=== PATIENT | male | born 1975 | race Caucasian/White ===

== ENCOUNTER 2020-02-22 22:21 | Emergency (ER) | payer OTHER ==
[2020-02-22] MEDS ORDERED: LORazepam TAB(*) 1 MG PO ONE (22:32)
--- NOTE | 2020-02-22 22:32 | ED ---
Substance Abuse/Use - HPI Summary HPI Summary: This pt is a 44 Y/O M presenting to [facility] after eating a candy that he states was filled with marijuana. He states that he got the candy at a [employer] and reports eating it at 1999. He states that he currently feels like he is coming down off of a panic attack. He states that he has never used marijuana before. He is currently experiencing tingling and lightheadedness. He states that he was unable to keep water down and vomited [employer]. 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 He states that he also is having dry mouth. He denies any fevers, chills, SOB, CP, rash, and sore throat. He states that he has no history of drug use or tobacco ingestion. He states no aggravating or alleviating factors. 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 Alleviating Factor(s): Nothing Associated Signs And Symptoms: Negative - fevers, chills, SOB, CP, rash, and sore throat, Tremulous, Vomiting, Other: - states unintentional ingestion, lightheadedness - Allergies/Home Medications Allergies/Adverse Reactions: Allergies Allergy/AdvReac Type Severity Reaction Status Date / Time sertraline Allergy Intermediate Fatigue Verified 02/22/20 22:42 Home Medications: Home Medications [place]-3 Fatty Acids/Fish Oil [[place] 3] 1 cap PO DAILY 01/01/20 [History Confirmed 01/01/20] Acetaminophen TAB* [Tylenol TAB*] 975 mg PO Q6H PRN 01/10/20 [History Confirmed 01/10/20] Aspirin 325 MG TAB* 325 mg PO SEE INSTRUCTIONS PRN 01/10/20 [History Confirmed 01/10/20] Ibuprofen TAB* [Advil TAB*] 200 mg PO Q6H PRN 01/10/20 [History Confirmed ] Mv-Mn/C/Glutamin/Lysin/Uuta896 [Airborne Gummies] 1 each PO DAILY 01/10/20 [ History Confirmed 01/10/20] Nettle [place] 480 mg PO DAILY 01/10/20 [History Confirmed 01/10/20] Niacin ER CAP* [Niaspan ER CAP*] 1,000 mg PO DAILY 01/10/20 [History Confirmed 01/10/20] PMH/Surg Hx/FS Hx/Imm Hx Previously Healthy: Yes Endocrine/Hematology History: Denies: Hx Diabetes Respiratory History: Denies: Hx Asthma GI History: Reports: Other GI Disorders - poor stomach lining - Cancer History Hx Chemotherapy: No Hx Radiation Therapy: No - Surgical History Surgical History: Yes Surgery Procedure, Year, and Place: polyps removed from colon - Immunization History Immunizations Up to Date: Yes Infectious Disease History: No - Family History Known Family History: Positive: Hypertension - Social History Occupation: Unemployed Lives: Alone Alcohol Use: Rare Hx Substance Use: No Substance Use Type: Reports: None Hx Tobacco Use: No Smoking Status (MU): Never Smoked Tobacco Review of Systems Negative: Fever, Chills Negative: Sore Throat Negative: Chest Pain Negative: Shortness Of Breath Negative: Rash Neurological/Mental Status: Other - POSITIVE: lightheadedness, tingling All Other Systems Reviewed And Are Negative: Yes Physical Exam - Summary Physical Exam Summary: Constitutional: Well-developed, Well-nourished, Alert. (-) Distressed Skin: Warm, Dry HENT: Normocephalic; Atraumatic Eyes: Conjunctiva normal, pupils 6 mm and reactive. Neck: Musculoskeletal ROM normal neck. (-) JVD, (-) Stridor, (-) Tracheal deviation Cardio: Rhythm regular, rate tachycardic in the 110s, Heart sounds normal; Intact distal pulses; Radial pulses are 2+ and symmetric. (-) Murmur Pulmonary/Chest wall: Effort normal. (-) Respiratory distress, (-) Wheezes, (-) Rales Abd: Soft, (-) tenderness, (-) Distension, (-) Guarding, (-) Rebound Musculoskeletal: (-) Edema Lymph: (-) Cervical adenopathy Neuro: Alert, Oriented x3 Psych: Anxious appearing, affect normal. Triage Information Reviewed: Yes Vital Signs On Initial Exam: Temp Pulse Resp BP SpO2 FiO2 97.5 F 113 18 135/81 98 02/22/20 22:25 02/22/20 22:25 02/22/20 22:25 02/22/20 22:25 02/22/20 22:25 Vital Signs Reviewed: Yes Procedures - Sedation Patient Received Moderate/Deep Sedation with Procedure: No Re-Evaluation - Re-Evaluation First Eval Re-Evaluation Time: 23:55 Change: Improved Comment: Pt's heart rate is decreasing and he states that his SOB is resolving. Currently he states that he is still anxious. He reports that his feet are heavy. Second Eval Re-Evaluation Time: 00:46 Change: Improved Comment: Pt was informed that his father called and was stating that he could drive home. The pt became more anxious and stated that "my family doesn't know I did this tonight." Course/Dx - Course Course Of Treatment: Patient is here after accidentally overdosing on marijuana. Patient was initially tachycardic but was very anxious. Patient was given Ativan and by mouth fluids with improvement in his symptoms. Patient was monitored until he got a safe ride home by his mother. - Diagnoses Provider Diagnoses: Accidental marijuana overdose Discharge ED - Sign-Out/Discharge Documenting (check all that apply): Patient Departure - discharge - Discharge Plan Condition: Good Disposition: HOME Patient Education Materials: Cannabis Abuse (ED) Referrals: Fabián Goldman MD [Primary Care Provider] - 2 Days Additional Instructions: PLEASE FOLLOW UP WITH YOUR PRIMARY CARE PROVIDER IN 1-3 DAYS AND RETURN TO THE EMERGENCY DEPARTMENT FOR ANY NEW OR WORSENING SYMPTOMS. - Billing Disposition and Condition Condition: GOOD Disposition: Home - Attestation Statements Document Initiated by Salma: Yes Documenting Scribe: Freddy Keller Provider For Whom Salma is Documenting (Include Credential): Rosalio Mcgarry MD Scribe Attestation: Freddy Rivera, scribed for Rosalio Mcgarry MD on 02/23/20 at 0232. Scribe Documentation Reviewed: Yes Provider Attestation: The documentation as recorded by the Freddy salazar accurately reflects the service I personally performed and the decisions made by me, Rosalio Mcgarry MD Status of Scribe Document: Viewed
[2020-02-23 01:30] VITALS: BP 109/71
--- OUTSIDE RECORDS SUMMARY | 2020-02-23 01:31 | XMS REPORT | Continuity of Care Document ---
:1975 External Reference #:[id number] Author Name Fabián Goldman MD Address [address] [place] [address] Problems Description No Information Available Social History Type Date Description Comments Sex Unknown Tobacco Use Start: Unknown Never Smoked Cigarettes ETOH Use Rare Use Of Alcohol Recreational Drug Use Denies Drug Use Exercise Type/Frequency Negative For Exercises Regular stretching regularly exercises Exercise Type/Frequency Exercises rarely Allergies, Adverse Reactions, Alerts Description No Known Drug Allergies Medications Active Medications SIG Qnty Indications Ordering Provider Date Sertraline HCL 1 by mouth every 30tabs F41.9 Fabián Goldman, 01/16/2020 50mg day MD Tablets Niacin Unknown Tablets Airborne Unknown Che[place]abs Hep Oil Unknown Stinging Nettle [place] Unknown Omeprazole Take One Capsule Unknown 20mg By Mouth Twice A Capsules DR Day 30 To 60 Minutes Before A Meal Immunizations CPT Code Status Date Vaccine Lot # [id number] Given 11/24/2019 Influenza Virus Vaccine, Quadrivalent, 3 Yr > [id number] Quad, Preserv Free 01214 Given 09/21/2018 Influenza Virus Vaccine, Quadrivalent, 3 Yr > [id number] Quad, Preserv Free 02576 Given 12/09/2017 Influenza Virus Vaccine, Quadrivalent, 3 Yr > [id number] Quad, Preserv Free 97775 Given 02/10/2016 Tdap (Adacel) [id number] Vital Signs Date Vital Result Comment 01/16/2020 11:02am Weight 151.00 lb Weight 68.494 kg BP Systolic 112 mmHg BP Diastolic 72 mmHg Heart Rate 72 /min Body Temperature 97.8 F Respiratory Rate 16 /min O2 % BldC Oximetry 97 % 11/24/2019 9:24am Weight 162.00 lb Weight 73.483 kg BP Systolic 102 mmHg BP Diastolic 68 mmHg Heart Rate 76 /min Body Temperature 96.1 F Respiratory Rate 16 /min Results Test Acquired Date Facility Test Result H/L Range Note Laboratory test 01/10/2020 [facility] Surgical SEE RESULT 1 finding [phone] Pathology BELOW Order Laboratory test 01/10/2020 [facility] Clotest SEE RESULT 2 finding [phone] BELOW Disaccharidase 01/10/2020 [facility] Lactase 4.2 3 Analysis [phone] Sucrase 25.3 4 Maltase 90.8 5 Palatinase 6.3 6 Interpretation See Comment 7 CBC Auto 11/24/2019 [facility] White Blood 6.3 10^3/ uL Normal 3.5-10.8 Diff [phone] Count Red Blood Count 5.56 10^6/uL High 4.18-5.48 Hemoglobin 16.5 g/dL Normal 14.0-18.0 Hematocrit 48 % Normal 42-52 Mean Corpuscular Volume 86 fL Normal 80-94 Mean Corpuscular Hemoglobin 30 pg Normal 27-31 Mean Corpuscular HGB Conc 35 g/dL Normal 31-36 Red Cell Distribution Width 13 % Normal 10-15 Platelet Count 273 10^3/uL Normal 150-450 Mean Platelet Volume 8.2 fL Normal 7.4-10.4 Abs Neutrophils 3.8 10^3/uL Normal 1.5-7.7 Abs Lymphocytes 1.8 10^3/uL Normal 1.0-4.8 Abs Monocytes 0.6 10^3/uL Normal 0-0.8 Abs Eosinophils 0.1 10^3/uL Normal 0-0.6 Abs Basophils 0.0 10^3/uL Normal 0-0.2 Abs Nucleated RBC 0.0 10^3/uL Granulocyte % 59.6 % Lymphocyte % 28.6 % Monocyte % 9.5 % Eosinophil % 1.8 % Basophil % 0.5 % Nucleated Red Blood Cells % 0.1 Comp Metabolic 11/24/2019 [facility] Sodium 140 mmol/ L Normal 135-145 Panel [phone] Potassium 4.2 mmol/L Normal 3.5-5.0 Chloride 103 mmol/L Normal 101-111 Co2 Carbon Dioxide 29 mmol/L Normal 22-32 Anion Gap 8 mmol/L Normal 2-11 Glucose 90 mg/dL Normal 70-100 Blood Urea Nitrogen 16 mg/dL Normal 6-24 Creatinine 0.96 mg/dL Normal 0.67-1.17 BUN/Creatinine Ratio 16.7 Normal 8-20 Calcium 9.9 mg/dL Normal 8.6-10.3 Total Protein 7.2 g/dL Normal 6.4-8.9 Albumin 4.9 g/dL Normal 3.2-5.2 Globulin 2.3 g/dL Normal 2-4 Albumin/Globulin Ratio 2.1 Normal 1-3 Total Bilirubin 0.60 mg/dL Normal 0.2-1.0 Alkaline Phosphatase 67 U/L Normal 34-104 Alt 30 U/L Normal 7-52 Ast 20 U/L Normal 13-39 Egfr Non- 84.3 >60 Egfr 102.0 >60 8 Laboratory 11/24/2019 [facility] Lyme Screen W/ Negative Negative 9 test finding [phone] Reflex To WB Celiac Panel 11/24/2019 [facility] Tissue <1.2 U/mL 10 [phone] Transglutaminase IgA Ab Immunoglobulin A 175 mg/dL 61 - 356 Celiac Interpretation See Comment 11 1 SEE RESULT BELOW Name: EDENJEAN G : [address]: Lilian Harrington MD Acct: [id number] Unit: [id number] AGE: 44 Location: ENDO Re01/10/20 SEX: M Status: DEP REF SPEC: [id number] TANIYA: 01/10/20- SUBM DR: Lilian Zapata MD REQ: [id number] RECD: 01/10/20-1340 STATUS: [facility] DR: Fabián Goldman MD _ ORDERED: LEVEL 4/10, IMMUNO-FIRST ADDENDUM An H. pylori immunohistochemical stain, with appropriately reacting controls , was performed on sections cut from specimen 3 and is negative for Helicobacter organisms. Addendum Signed (signature on file) Angie Miranda MD 1647 FINAL DIAGNOSIS 1. Small bowel, duodenum, biopsy: -- Small bowel mucosa with normal villous architecture and mild superficial hyperemia. -- No increased lamina propria lymphoplasmacytic infiltrate or villous blunting identified. 2. Small bowel, duodenal bulb, biopsy: -- Small bowel mucosa with normal villous architecture and mild superficial hyperemia. -- No increased lamina propria lymphoplasmacytic infiltrate or villous blunting identified. 3. Stomach, antrum, biopsy: -- Gastric antral mucosa with mild hyperemia. -- No active gastritis nor Helicobacter pylori-like organisms identified. See comment. 4. Colon, ascending, biopsy: -- Tubular adenoma. -- No high grade dysplasia or malignancy. 5. Colon, random biopsies: -- Large intestinal mucosa with no significant pathologic abnormality. -- No evidence of microscopic/lymphocytic colitis, collagenous colitis or other acute or chronic inflammatory bowel process identified. CONTINUED ON NEXT PAGE DEPARTMENT OF PATHOLOGY, [address] [place] [address] Jeremie Malone M.D. Director [facility] # [id number] 6. Colon, hepatic flexure, biopsy: -- Villoglandular adenoma. -- No high grade dysplasia or malignancy identified. 7. Colon, descending, biopsy: -- Tubular adenoma. -- No high grade dysplasia or malignancy. 8. Colon, 20 cm, biopsy: -- Tubulovillous adenoma. -- No high grade dysplasia or malignancy identified. 9. Colon, rectum, biopsy: -- Hyperplastic polyps (2 fragments). 10. Colon, 10 cm, biopsy: -- Hyperplastic polyp. CLINICAL HISTORY Change in bowel movements; nausea POST-OPERATIVE DIAGNOSIS EGD: esophagus-OK, gastroesophageal junction at 40cm; gastric-prepyloric antrum erosions, CLOtest, biopsy; duodenum-normal, erythematous bulb-biopsy; colonoscopy to terminal ileum; ascending 2 mm jumbo; hepatic flexure 1.2 cm, cold snare and jumbo biopsy; descending 4 mm cold snare; 20cm 1.5-2cm hot snare, clip; 10cm 8-10mm, hot snare, clip; rectal 3mm x2, jumbo; hemorrhoids GROSS DESCRIPTION 1. The specimen is received in formalin labeled, Duodenum Biopsies, and consists of a 0.6 x 0.4 x 0.2 cm aggregate of banks-red irregular soft tissue fragments which is submitted entirely in one cassette. 2. The specimen is received in formalin labeled, Duodenal Bulb Biopsies, and consists of a 0.5 x 0.4 x 0.2 cm aggregate of banks-red irregular soft tissue fragments which is submitted entirely in one cassette. CONTINUED ON NEXT PAGE DEPARTMENT OF PATHOLOGY, [address] [place] [address] Jeremie Malone M.D. Director [facility] # [id number] 3. The specimen is received in formalin labeled, Biopsy Gastric Antrum, and consists of a 0.6 x 0.5 x 0.2 cm aggregate of banks-red irregular soft tissue fragments which is submitted entirely in one cassette. 4. The specimen is received in formalin labeled, Biopsy Ascending Colon Polyp, and consists of two banks irregular to polypoid soft tissue fragments measuring 0.3 x 0.2 x 0.1 cm and 0.4 by up to 0.2 x 0.1 cm which are submitted entirely in one cassette. 5. The specimen is received in formalin labeled, Random Colon Biopsies, and consists of a 1.0 x 0.6 x 0.1 cm aggregate of banks-pink irregular soft tissue fragments which is submitted entirely in one cassette. 6. The specimen is received in formalin labeled, Hepatic Flexure Colon Polyp, and consists of a 1.1 x 0.9 x 0.4 cm aggregate of banks-pink irregular to polypoid soft tissue fragments which is submitted entirely in one cassette. 7. The specimen is received in formalin labeled, Descending Colon Polyp, and consists of a 0.4 x 0.3 x 0.2 cm banks-pink polypoid soft tissue fragment which is submitted entirely in one cassette. 8. The specimen is received in formalin labeled, Colon Polyp at 20 cm, and consists of a 1.0 x 1.0 x 0.5 cm banks-red lobulated pedunculated polypoid soft tissue fragment with a 0.5 x 0.4 cm stalk. The specimen is inked, trisected and submitted entirely in one cassette. 9. The specimen is received in formalin labeled, Biopsy Rectal Polyps, and consists of a 0.6 x 0.5 x 0.1 cm aggregate of banks-red irregular to polypoid soft tissue fragments which is submitted entirely in one cassette. 10. The specimen is received in formalin labeled, Colon Polyp at 10 cm, and consists of a 0.5 x 0.4 x 0.4 cm banks-red polypoid soft tissue fragment which is inked, bisected and submitted entirely in one cassette. Signed by and Reported on: Jeremie Malone MD 1224 END OF REPORT DEPARTMENT OF PATHOLOGY, [address] [place] [address] Jeremie Malone M.D. Director [facility] # [id number] 2 SEE RESULT BELOW Name: JEAN HARMON : [address]: Lilian Harrington MD Acct: [id number] Unit: [id number] AGE: 44 Location: ENDO Re01/10/20 SEX: M Status: REG REF SPEC: [id number] TANIYA: 01/10/20-[address]: Lilian Harrington MD REQ: [id number] RECD: 01/10/20 STATUS: [facility] DR: Fabián Goldman MD _ SOURCE: GAS ANTRUM SPDESC: ORDERED: Clotest Procedure Result Reported Site Clotest Final 01/11/20811 ML Clotest Negative * - [facility] . END OF REPORT DEPARTMENT OF PATHOLOGY, [address] [place] [address] Jeremie Malone M.D. 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 Test Performed by: [facility] [employer] [address] [place] [address] 8 Because ethnic data is not always readily available, this report includes an eGFR for both -Americans and non- Americans. The National Kidney Disease Education Program (NKDEP) does not endorse the use of the MDRD equation for patients that are not between the ages of 18 and 70, are , have extremes of body size, muscle mass, or nutritional status, or are non- or non-. According to the National Kidney Foundation, irrespective of diagnosis, the stage of the disease is based on the level of kidney function: Stage Description GFR(mL/min/1.73 m(2)) 1 Kidney damage with normal or decreased GFR 90 2 Kidney damage with mild decrease in GFR 60-89 3 Moderate decrease in GFR 30-59 4 Severe decrease in GFR 15-29 5 Kidney failure <15 (or dialysis) 9 [id number] 10 REFERENCE VALUE <4.0 (Negative) Test Performed by: [place] [address] Cardiology Manager: Vicente Virk M.D. Ph.D.; CLIA# [id number] 11 Negative serology. Celiac disease unlikely. However, approximately 10% of patients with celiac disease are seronegative. Also, patients who are already adhering to a gluten-free diet may be seronegative. If celiac disease is highly clinically suspected, consider HLA-DQ typing. Test Performed by: [place] [address] Cardiology Manager: Vicente Virk M.D. Ph.D.; CLIA# [id number] Procedures Description No Information Available Medical Devices Description No Information Available Encounters Type Date Location Provider Dx Diagnosis Office Visit 11/24/2019 Main Office Fabián Goldman K58.2 Mixed irritable 9:15a MD bowel syndrome K40.90 Unil inguinal hernia, w/o obst or gangr, not spcf as recur Z23 Encounter for immunization Assessments Date Code Description Provider 01/16/2020 K58.2 Mixed irritable bowel syndrome Fabián Goldman MD 01/16/2020 F41.9 Anxiety disorder, unspecified Fabián Goldman MD 11/24/2019 K58.2 Mixed irritable bowel syndrome Fabián Goldman MD 11/24/2019 K40.90 Unilateral inguinal hernia, without Fabián Goldman MD obstruction or gangrene, not specified as recurrent 11/24/2019 Z23 Encounter for immunization Fabiná Goldman MD Plan of Treatment 01/16/2020 - Fabián Goldman MDK58.2 Mixed irritable bowel syndromeComments: Has had an adequate rule out for serious GI issues per GI. Will focus on control of symptoms and treat for anxiety, work on diet and use symptomatic treatment such as acupuncture.Recommendations:low FODMAP diet.F41.9 Anxiety disorder, unspecifiedNew Medication:Sertraline HCL 50 mg - 1 by mouth every dayComments:He would really like to try a medication. His mom has been doing well on zoloft. Functional Status Description No Information Available Mental Status Description No Information Available Referrals Refer to Dr Reason for Referral Status Appt Date Thanh Preciado [facility] - Chronic GI issues for Closed decades. Has not seen GI or had c-scope. - - Please contact Pt to schedule appt. - - Please fax appointment date[facility] to [facility], . [facility] [address] [address] [phone]
--- OUTSIDE RECORDS SUMMARY | 2020-02-23 01:31 | XMS REPORT | Continuity of Care Document ---
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 Gastroduodenitis Angelique Haas PA-C Onset: 01/29/2020 Disorder of digestive system Angelique Haas PA-C Onset: 12/12/2019 Constipation Angelique Haas PA-C Onset: 12/12/2019 Diarrhea Angelique Haas PA-C Onset: 12/12/2019 Generalized abdominal pain Angelique Haas PA-C Onset: 12/12/2019 Nausea ZENON Chakraborty-Jose Onset: 12/12/2019 Social History Type Date Description Comments Sex Unknown ETOH Use Rarely consumes alcohol Recreational Drug Use Never Used Drugs Tobacco Use Start: Unknown Patient has never smoked Smoking Status Reviewed: 01/29/20 Patient has never smoked Allergies, Adverse Reactions, Alerts Description No Known Drug Allergies Medications Active Medications SIG Qnty Indications Ordering Provider Date Omeprazole take 1 capsule by 60caps Lilian 01/11/2020 20mg mouth twice MD Juany Capsules DR daily. take 30-60 minutes before a meal. [place]-3 Unknown 1000mg Capsules Sertraline HCL Daily Unknown 50mg Tablets History Medications Peg-3350/Electrolytes by mouth as 4000ml K59.00 Lilian 12/12/2019 - 236gm directed MD Juany 01/12/2020 Solution Rec Immunizations CPT Code Status Date Vaccine Lot # 36077 Given 11/24/2019 Influenza Virus Vaccine, Quadrivalent, Split, Preservative Free 68352 Given 09/21/2018 Influenza Virus Vaccine, Quadrivalent, Split, Preservative Free 42035 Given 12/09/2017 Influenza Virus Vaccine, Quadrivalent, Split, Preservative Free 95546 Given 02/10/2016 Tetanus, Diphtheria Toxoids/Acellular Pertussis Vaccine 7 Or > Vital Signs Date Vital Result Comment 01/29/2020 10:21am Height 67 inches 5'7" Weight 152.00 lb BMI (Body Mass Index) 23.8 kg/m2 12/12/2019 9:32am Height 67 inches 5'7" Weight 158.00 lb BP Systolic 118 mmHg BP Diastolic 82 mmHg Heart Rate 82 /min BMI (Body Mass Index) 24.7 kg/m2 Results Test Acquired Date Facility Test Result H/L Range Note Laboratory test 01/10/2020 [facility] [place] Surgical SEE RESULT 1 finding Pathology Order BELOW Laboratory test 01/10/2020 [facility] [place] Clotest SEE RESULT 2 finding BELOW Disaccharidase 01/10/2020 [facility] [place] Lactase 4.2 3 Analysis Sucrase 25.3 4 Maltase 90.8 5 Palatinase 6.3 6 Interpretation See Comment 7 Celiac Panel! 11/24/2019 [facility] Endomysial AB QN <pending> Serum Transglutaminase 11/24/2019 [facility] Transglutaminase AB <pending> Iga/Igg Iga Transglutaminase AB Igg <pending> Gliadin Igg/Iga AB 11/24/2019 [facility] Gliadin Iga <pending> Gliadin Igg <pending> CBC Auto Diff 11/24/2019 N2N/CCD Import White Blood Count 6.3 10^3/uL 3.5-10.8 Red Blood Count 5.56 10^6/uL High 4.18-5.48 Hemoglobin 16.5 g/dL 14.0-18.0 Hematocrit 48 % 42-52 Mean Corpuscular Volume 86 fL 80-94 Mean Corpuscular Hemoglobin 30 pg 27-31 Mean Corpuscular HGB Conc 35 g/dL 31-36 Red Cell Distribution Width 13 % 10-15 Platelet Count 273 10^3/uL 150-450 Mean Platelet Volume 8.2 fL 7.4-10.4 Abs Neutrophils 3.8 10^3/uL 1.5-7.7 Abs Lymphocytes 1.8 10^3/uL 1.0-4.8 Abs Monocytes 0.6 10^3/uL 0-0.8 Abs Eosinophils 0.1 10^3/uL 0-0.6 Abs Basophils 0.0 10^3/uL 0-0.2 Abs Nucleated RBC 0.0 10^3/uL Granulocyte % 59.6 % Lymphocyte % 28.6 % Monocyte % 9.5 % Eosinophil % 1.8 % Basophil % 0.5 % Nucleated Red Blood Cells % 0.1 1 Lab Results 11/24/2019 N2N/CCD Import Sodium 140 mmol/L 135-145 Potassium 4.2 mmol/L 3.5-5.0 Chloride 103 mmol/L 101-111 Co2 Carbon Dioxide 29 mmol/L 22-32 Anion Gap 8 mmol/L 2-11 Glucose 90 mg/dL 70-100 Blood Urea Nitrogen 16 mg/dL 6-24 Creatinine 0.96 mg/dL 0.67-1.17 BUN/Creatinine Ratio 16.7 1 8-20 Calcium 9.9 mg/dL 8.6-10.3 Total Protein 7.2 g/dL 6.4-8.9 Albumin 4.9 g/dL 3.2-5.2 Globulin 2.3 g/dL 2-4 Albumin/Globulin Ratio 2.1 1 1-3 Total Bilirubin 0.60 mg/dL 0.2-1.0 Alkaline Phosphatase 67 U/L 34-104 Alt 30 U/L 7-52 Ast 20 U/L 13-39 Egfr Non- 84.3 1 Egfr 102.0 1 8 Lyme Screen W/ Reflex To WB <pending> Lab Results 11/24/2019 N2N/CCD Import Lyme Screen W/ Reflex To WB <pending > 1 SEE RESULT BELOW Name: EDENJEAN G : [address]: Lilian Harrington MD Acct: [id number] Unit: [id number] AGE: 44 Location: ENDO Re01/10/20 SEX: M Status: REG REF SPEC: [id number] TANIYA: 01/10/20- SUBM DR: Lilian Zapata MD REQ: [id number] RECD: 01/10/20 STATUS: ANITA HOUSE DR: Fabián Goldman MD _ ORDERED: LEVEL 4/10 FINAL DIAGNOSIS 1. Small bowel, duodenum, biopsy: [...] acute or chronic inflammatory bowel process identified. 6. Colon, hepatic flexure, biopsy: -- Villoglandular adenoma. -- No high grade dysplasia or malignancy identified. 7. Colon, descending, biopsy: -- Tubular adenoma. -- No high grade dysplasia or malignancy. 8. Colon, 20 cm, biopsy: -- Tubulovillous adenoma. CONTINUED ON NEXT PAGE DEPARTMENT OF PATHOLOGY, [address] [place] [address] Jeremie Malone M.D. Director [facility] # [id number] -- No high grade dysplasia or malignancy [...] which is submitted entirely in one cassette. 3. The specimen is received in formalin [...] Random Colon Biopsies, and consists of a CONTINUED ON NEXT PAGE DEPARTMENT OF PATHOLOGY, [address] [place] [address] Jeremie Malone M.D. Director [facility] # [id number] 1.0 x 0.6 x 0.1 cm aggregate [...] 1224 END OF REPORT DEPARTMENT OF PATHOLOGY, [address] [place] [address] Jeremie Malone M.D. Director [facility] # [id number] SEE RESULT BELOW Name: JEAN HARMON : [address]: Lilian Harrington MD Acct: [id number] Unit: [id number] AGE: 44 Location: ENDO Re01/10/20 SEX: M Status: REG REF SPEC: [id number] TANIYA: 01/10/20- SUBM DR: Lilian Zapata MD REQ: [id number] RECD: 01/10/20-1340 STATUS: ANITA HOUSE DR: Fabián Goldman MD _ ORDERED: LEVEL 4/10 FINAL DIAGNOSIS 1. Small bowel, duodenum, biopsy: [...] acute or chronic inflammatory bowel process identified. 6. Colon, hepatic flexure, biopsy: -- Villoglandular adenoma. -- No high grade dysplasia or malignancy identified. 7. Colon, descending, biopsy: -- Tubular adenoma. -- No high grade dysplasia or malignancy. 8. Colon, 20 cm, biopsy: -- Tubulovillous adenoma. CONTINUED ON NEXT PAGE DEPARTMENT OF PATHOLOGY, [address] [place] [address] Jeremie Malone M.D. Director [facility] # [id number] -- No high grade dysplasia or malignancy [...] which is submitted entirely in one cassette. 3. The specimen is received in formalin [...] Random Colon Biopsies, and consists of a CONTINUED ON NEXT PAGE DEPARTMENT OF PATHOLOGY, [address] [place] [address] Jeremie Malone M.D. Director [facility] # [id number] 1.0 x 0.6 x 0.1 cm aggregate [...] 1224 END OF REPORT DEPARTMENT OF PATHOLOGY, [address] [place] [address] Jeremie Malone M.D. Director [facility] # [id number] SEE RESULT BELOW Name: JEAN HARMON : [address]: Lilian Harrington MD Acct: [id number] Unit: [id number] AGE: 44 Location: ENDO Re01/10/20 SEX: M Status: DEP REF SPEC: [id number] TANIYA: 01/10/20- SUBM DR: Lilian Zapata MD REQ: [id number] RECD: 01/10/20 STATUS: ANITA HOUSE DR: Fabián Goldman MD [...] CONTINUED ON NEXT PAGE DEPARTMENT OF PATHOLOGY, [address] [place] [address] Jeremie Malone M.D. Director [facility] # [id number] 6. Colon, hepatic flexure, biopsy: -- Villoglandular [...] CONTINUED ON NEXT PAGE DEPARTMENT OF PATHOLOGY, [address] [place] [address] Jeremie Malone M.D. Director [facility] # [id number] 3. The specimen is received in formalin [...] 1224 END OF REPORT DEPARTMENT OF PATHOLOGY, [address] [place] [address] Jeremie Malone M.D. Director [facility] # [id number] SEE RESULT BELOW Name: JEAN HARMON : [address]: Lilian Harrington MD Acct: [id number] Unit: [id number] AGE: 44 Location: ENDO Re01/10/20 SEX: M Status: DEP REF SPEC: [id number] TANIYA: 01/10/20- SUBM DR: Lilian Zapata MD REQ: [id number] RECD: 01/10/20-1341 STATUS: ANITA HOUSE DR: Fabián Goldman MD [...] CONTINUED ON NEXT PAGE DEPARTMENT OF PATHOLOGY, [address] [place] [address] Jeremie Malone M.D. Director [facility] # [id number] 6. Colon, hepatic flexure, biopsy: -- Villoglandular [...] CONTINUED ON NEXT PAGE DEPARTMENT OF PATHOLOGY, [address] [place] [address] Jeremie Malone M.D. Director [facility] # [id number] 3. The specimen is received in formalin [...] 1224 END OF REPORT DEPARTMENT OF PATHOLOGY, [address] [place] [address] Jeremie Malone M.D. Director [facility] # [id number] 2 SEE RESULT BELOW Name: JEAN HARMON : [address]: Lilian Harrington MD Acct: [id number] Unit: [id number] AGE: 44 Location: ENDO Re01/10/20 SEX: M Status: REG REF SPEC: [id number] TANIYA: 01/10/20-[address]: Lilian Harrington MD REQ: [id number] RECD: 01/10/20 STATUS: HAWA HOUSE DR: Fabián Goldman MD _ SOURCE: GAS ANTRUM SPDESC: ORDERED: Clotest Procedure Result Reported Site Clotest Final 01/11/20- 0812 ML Clotest Negative * ML - Main Lab . END OF REPORT DEPARTMENT OF PATHOLOGY, [address] [place] [address] Jeremie Malone M.D. Director [facility] # [id number] SEE RESULT BELOW Name: JEAN HARMON : [address]: Lilian Harrington MD Acct: [id number] Unit: [id number] AGE: 44 Location: ENDO Re01/10/20 SEX: M Status: REG REF SPEC: [id number] TANIYA: 01/10/[address] [facility] [address]: Lilian Harrington MD REQ: [id number] RECD: 01/10/20 STATUS: HAWA HOUSE DR: Fabián Goldman MD _ SOURCE: GAS ANTRUM SPDESC: ORDERED: Clotest Procedure Result Reported Site Clotest Final 01/11/20811 ML Clotest Negative * ML - Main Lab . END OF REPORT DEPARTMENT OF PATHOLOGY, [address] [place] [address] Jeremie Malone M.D. Director [facility] # [id number] 3 REFERENCE VALUE Range 24.5 +/- 8.0 [...] with normal alpha-glucosidase activities. Test Performed by: [employer], [employer]. [facility] [place] [address] 8 Because ethnic data is not always [...] 15-29 5 Kidney failure <15 (or dialysis) Procedures Date Code Description Status 01/10/2020 00544 Moderate Sedation Services; Same Phys Each Additional Completed 15 Mins 01/10/2020 91098 Moderate Sedation Services; Same Phys Each Additional Completed 15 Mins 01/10/2020 38520 Moderate Sedation Services; Same Phys Each Additional Completed 15 Mins 01/10/2020 89763 Moderate Sedation Services; Same Phys Each Additional Completed 15 Mins 01/10/2020 09461 Moderate Sedation Services; Same Phys Each Additional Completed 15 Mins 01/10/2020 58319 Moderate Sedation Services; Same Phys Intl 15 Mins; PT Completed >= 5 Years 01/10/2020 08446 Colonoscopy W/ Endoscopic Mucosal Resection Completed 01/10/2020 65263 Colonoscopy W/ Snare RM Of Polyp/Tumor/Lesion Completed 01/10/2020 29604 Colonscopy+Biopsy Completed 01/10/2020 23518 EGD+Biopsy Single Or Multiple Completed 12/23/2019 33033356 Colonoscopy Completed Medical Devices Description No Information Available Encounters Type Date Location Provider Dx Diagnosis Office Visit 12/12/2019 Gastroenterology Angelique Jewell R11.0 Nausea 9:30a [facility] SEAN HaasC R10.84 Generalized abdominal pain R19.4 Change in bowel habit R19.7 Diarrhea, unspecified K59.00 Constipation, unspecified Z83.79 Family history of other diseases of the digestive system Assessments Date Code Description Provider 01/29/2020 K29.90 Gastroduodenitis, unspecified, without SEAN ChakrabortyC bleeding 01/29/2020 E73.9 Lactose intolerance, unspecified Angelique Haas PA-C 01/29/2020 Z86.010 Personal history of colonic polyps SEAN ChakrabortyC 01/29/2020 R10.84 Generalized abdominal pain SEAN ChakrabortyC 01/29/2020 R14.0 Abdominal distension (gaseous) SEAN ChakrabortyC 01/10/2020 R19.4 Change in bowel habit Lilian Harrington MD 01/10/2020 R10.9 Unspecified abdominal pain Lilian Harrington MD 01/10/2020 D12.2 Benign neoplasm of ascending colon Lilian Harrington MD 01/10/2020 K25.9 Gastric ulcer, unspecified as acute or Lilian Harrington MD chronic, without hemorrhage or perforation 12/12/2019 R11.0 Nausea SEAN ChakrabortyC 12/12/2019 R10.84 Generalized abdominal pain SEAN ChakrabortyC 12/12/2019 R19.4 Change in bowel habit Angelique JorgeSEAN WareC 12/12/2019 R19.7 Diarrhea, unspecified ZENON Chakraborty-C 12/12/2019 K59.00 Constipation, unspecified ZENON Chakraborty-C 12/12/2019 Z83.79 Family history of other diseases of the Angelique Haas PA-C digestive system Plan of Treatment No Information Available Functional Status Description No Information Available Mental Status Description No Information Available Referrals Description No Information Available
--- OUTSIDE RECORDS SUMMARY | 2020-02-23 01:31 | XMS REPORT | Continuity of Care Document ---
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 [phone] Problems Active Problems Provider Date Disorder of digestive system Angelique Haas PA-C Onset: 12/12/2019 Constipation Angelique Haas PA-C Onset: 12/12/2019 Diarrhea Angelique Haas PA-C Onset: 12/12/2019 Generalized abdominal pain Angelique Haas PA-C Onset: 12/12/2019 Nausea Angelique Haas PA-C Onset: 12/12/2019 Social History Type Date Description Comments Sex Unknown ETOH Use Rarely consumes alcohol Recreational Drug Use Never Used Drugs Tobacco Use Start: Unknown Patient has never smoked Smoking Status Reviewed: 12/12/19 Patient has never smoked Allergies, Adverse Reactions, Alerts Description No Known Drug Allergies Medications Active Medications SIG Qnty Indications Ordering Provider Date Omeprazole take 1 capsule by 60caps Lilian 01/11/2020 20mg mouth twice MD Juany Capsules DR daily. take 30-60 minutes before a meal. [place]-3 Unknown 1000mg Capsules History Medications Peg-3350/Electrolytes by mouth as 4000ml K59.00 Lilian 12/12/2019 - 236gm directed MD Juany 01/12/2020 Solution Rec Immunizations CPT Code Status Date Vaccine Lot # 60830 Given 11/24/2019 Influenza Virus Vaccine, Quadrivalent, Split, Preservative Free 58716 Given 09/21/2018 Influenza Virus Vaccine, Quadrivalent, Split, Preservative Free 02285 Given 12/09/2017 Influenza Virus Vaccine, Quadrivalent, Split, Preservative Free 40597 Given 02/10/2016 Tetanus, Diphtheria Toxoids/Acellular Pertussis Vaccine 7 Or > Vital Signs Date Vital Result Comment 12/12/2019 9:32am Height 67 inches 5'7" Weight 158.00 lb BP Systolic 118 mmHg BP Diastolic 82 mmHg Heart Rate 82 /min BMI (Body Mass Index) 24.7 kg/m2 Results Test Acquired Date Facility Test Result H/L Range Note Laboratory test 01/10/2020 [facility] [place] Surgical SEE RESULT 1 finding Pathology Order BELOW Laboratory test 01/10/2020 [facility] [place] Clotest SEE RESULT 2 finding BELOW Disaccharidase 01/10/2020 [facility] [place] Lactase 4.2 3 Analysis [...] <pending > 1 SEE RESULT BELOW Name: JEAN HARMON : [address]: Lilian Harrington MD Acct: [id number] Unit: [id number] AGE: 44 Location: ENDO Re01/10/20 SEX: M Status: REG REF SPEC: [id number] TANIYA: 01/10/20- SUBM DR: Lilian Zapata MD REQ: [id number] RECD: 01/10/20 STATUS: ANITA HOUSE DR: Fabián [...] CONTINUED ON NEXT PAGE DEPARTMENT OF PATHOLOGY, [address] [place] [address] Jeremie Malone M.D. Director [facility] # [id number] -- No high grade dysplasia or malignancy [...] CONTINUED ON NEXT PAGE DEPARTMENT OF PATHOLOGY, [address] [place] [address] Jeremie Malone M.D. Director [facility] # [id number] 1.0 x 0.6 x 0.1 cm aggregate [...] 1224 END OF REPORT DEPARTMENT OF PATHOLOGY, [address] [place] [address] Jeremie Malone M.D. Director [facility] # [id number] SEE RESULT BELOW Name: EDENJEAN G : [address]: Lilian Harrington MD Acct: [id number] Unit: [id number] AGE: 44 Location: ENDO Re01/10/20 SEX: M Status: REG REF SPEC: [id number] TANIYA: 01/10/20- SUBM DR: Lilian Zapata MD REQ: [id number] RECD: 01/10/20-1341 STATUS: ANITA HOUSE DR: Fabián [...] CONTINUED ON NEXT PAGE DEPARTMENT OF PATHOLOGY, [address] [place] [address] Jeremie Malone M.D. Director [facility] # [id number] -- No high grade dysplasia or malignancy [...] CONTINUED ON NEXT PAGE DEPARTMENT OF PATHOLOGY, [address] [place] [address] Jeremie Malone M.D. Director [facility] # [id number] 1.0 x 0.6 x 0.1 cm aggregate [...] 1224 END OF REPORT DEPARTMENT OF PATHOLOGY, [address] [place] [address] Jeremie Malone M.D. Director [facility] # [id number] SEE RESULT BELOW Name: JEAN HARMON : [address]: Lilian Harrington MD Acct: [id number] Unit: [id number] AGE: 44 Location: ENDO Re01/10/20 SEX: M Status: DEP REF SPEC: [id number] TANIYA: 01/10/20- SUBM DR: Lilian Zapata MD REQ: [id number] RECD: 01/10/20-1341 STATUS: ANITA HOUSE DR: Fabián [...] CONTINUED ON NEXT PAGE DEPARTMENT OF PATHOLOGY, [address] [place] [address] Jeremie Malone M.D. Director [facility] # [id number] 6. Colon, hepatic flexure, biopsy: -- Villoglandular [...] CONTINUED ON NEXT PAGE DEPARTMENT OF PATHOLOGY, [address] [place] [address] Jeremie Malone M.D. Director [facility] # [id number] 3. The specimen is received in formalin [...] 1224 END OF REPORT DEPARTMENT OF PATHOLOGY, [address] [place] [address] Jeremie Malone M.D. Director [facility] # [id number] SEE RESULT BELOW Name: JEAN HARMON : [address]: Lilian Harrington MD Acct: [id number] Unit: [id number] AGE: 44 Location: ENDO Re01/10/20 SEX: M Status: DEP REF SPEC: [id number] TANIYA: 01/10/20- SUBM DR: Lilian Zapata MD REQ: [id number] RECD: 01/10/20 STATUS: ANITA HOUSE DR: Fabián [...] CONTINUED ON NEXT PAGE DEPARTMENT OF PATHOLOGY, [address] [place] [address] Jeremie Malone M.D. Director [facility] # [id number] 6. Colon, hepatic flexure, biopsy: -- Villoglandular [...] CONTINUED ON NEXT PAGE DEPARTMENT OF PATHOLOGY, [address] [place] [address] Jeremie Malone M.D. Director [facility] # [id number] 3. The specimen is received in formalin [...] cassette. Signed by and Reported on: Jeremie Maolne MD 1224 END OF REPORT DEPARTMENT OF PATHOLOGY, [address] [place] [address] Jeremie Malone M.D. Director [facility] # [id number] 2 SEE RESULT BELOW Name: EDENJEAN G : [address]: Lilian Harrington MD Acct: [id number] Unit: [id number] AGE: 44 Location: ENDO Re01/10/20 SEX: M Status: REG REF SPEC: [id number] TANIYA: 01/10/20 [facility] DR: Lilian Harrington MD REQ: [id number] RECD: 01/10/20 STATUS: HAWA HOUSE DR: Fabián Goldman MD _ SOURCE: GAS ANTRUM [facility]: ORDERED: Clotest Procedure Result Reported Site Clotest Final 01/11/20811 ML Clotest Negative * ML - Main Lab . END OF REPORT DEPARTMENT OF PATHOLOGY, [address] [place] [address] Jeremie Malone M.D. Director [facility] # [id number] SEE RESULT BELOW Name: JEAN HARMON : [address]: Lilian Harrington MD Acct: [id number] Unit: [id number] AGE: 44 Location: ENDO Re01/10/20 SEX: M Status: REG REF SPEC: [id number] TANIYA: 01/10/20-[address]: Lilian Harrington MD REQ: [id number] RECD: 01/10/20 STATUS: HA[place] HOU[facility] DR: Fabián Goldman MD _ [facility]: Clotest Procedure Result Reported Site Clotest Final 01/11/20811 ML Clotest Negative * - [facility] . END OF REPORT DEPARTMENT OF PATHOLOGY, [address] [place] [address] Jeremie Malone M.D. Director [facility] # [id number] 3 REFERENCE VALUE Range 24.5 +/- 8.0 [...] with normal alpha-glucosidase activities. Test Performed by: [employer] [employer] [address] [place] [address] 8 Because ethnic data is not always [...] (or dialysis) Procedures Date Code Description Status 12/23/2019 03791200 Colonoscopy Completed Medical Devices Description No Information Available Encounters Type Date Location Provider Dx Diagnosis Office Visit 12/12/2019 Gastroenterology Angelique PatelIndio R11.0 Nausea 9:30a [facility] Haas PA-C R10.84 Generalized abdominal pain R19.4 Change in bowel habit R19.7 Diarrhea, unspecified K59.00 Constipation, unspecified Z83.79 Family history of other diseases of the digestive system Assessments Date Code Description Provider 12/12/2019 R11.0 Nausea SEAN ChakrabortyC 12/12/2019 R10.84 Generalized abdominal pain Angelique Haas PA-C 12/12/2019 R19.4 Change in bowel habit SEAN ChakrabortyC 12/12/2019 R19.7 Diarrhea, unspecified ZENON Chakraborty-C 12/12/2019 K59.00 Constipation, unspecified ZENON Chakraborty-C 12/12/2019 Z83.79 Family history of other diseases of the SEAN ChakrabortyC digestive system Plan of Treatment 12/12/2019 - SEAN ChakrabortyCR11.0 AvxjhsC09.84 Generalized abdominal painR19.4 Change in bowel zkiifT47.7 Diarrhea, hrpaoanoxvcA61.00 Constipation, unspecifiedNew Medication:Peg-3350/Electrolytes 236 gm - by mouth as qvbfuohmK09.79 Family history of other diseases of the digestive system Functional Status Description No Information Available Mental Status Description No Information Available Referrals Description No Information Available
== END 2020-02-23 01:27 | disposition home or self-care (01) ==
LOC: ED 22:21
DX: T40.7X1A Poisoning by cannabis (derivatives), accidental (unintentional), initial encounter (principal); Y92.9 Unspecified place or not applicable; R42 Dizziness and giddiness; Z79.82 Long term (current) use of aspirin; Z79.899 Other long term (current) drug therapy; Z88.8 Allergy status to other drugs, medicaments and biological substances
CPT/HCPCS: 99283; A9270-GY